=== PATIENT | female | born 1975 | race Caucasian/White ===

== ENCOUNTER 2017-10-13 04:58 | Emergency (ER) | payer SELFPAY ==
[2017-10-13 05:17] VITALS: O2SAT 98
[2017-10-13] MEDS ORDERED: KETOROLAC TROMETHAMINE INJ 60 MG/2 ML VIAL IM ONE (05:26)
[2017-10-13] MEDS ORDERED: LIDOCAINE 1% 10 ML VIAL INJ ONE (05:26)
[2017-10-13] MEDS ORDERED: SULFA/TRIMETH 800/160 (DS) TAB 1 EA TAB PO ONE (05:26)
[2017-10-13] MEDS ORDERED: TETANUS,DIPHTHERIA,PERTUSSIS 1 EA SYG IM ONE (05:26)
[2017-10-13] MEDS ORDERED: PLAIN PACKING STRIP 1/4 1 EA BTTL TOP ONE (05:26)
[2017-10-13] MEDS ORDERED: POVIDONE IODINE 10 % 15 ML UD TOP ONE (05:27)
--- NOTE | 2017-10-13 05:30 | ED.PDOC ---
History of Present Illness - General Chief Complaint: Skin/Abrasion/Tear Stated Complaint: skin abcess Time Seen by Provider: 10/13/17 05:25 Source: patient Exam Limitations: no limitations - History of Present Illness Initial Comments: patient is a 42-year-old to 3 day history of worsening boils on her right eye and right abdominal wall. Patient had no fever or chills but has had some nausea last night. No emesis but the pain is worsening especially on the abdominal abscess. Patient did have one of these before several months ago and has left a scar behind her right thigh after it ruptured. Patient is concerned she may have staph. She denies any other systemic symptoms including fever, chills, cough or cold symptoms. Timing/Duration: other - 2-3 days Severity: moderate Location: face, torso Improving Factors: nothing Worsening Factors: nothing Associated Symptoms: other - nausea Allergies/Adverse Reactions: Allergies NO KNOWN ALLERGY Allergy (Verified 07/17/14 21:10) Home Medications: Ambulatory Orders Acetaminophen W/ Codeine [Tylenol W/ CODEINE #3] 1 ea PO Q6HR PRN 4 Days #20 Sulfa/Trimeth 800/160 (Ds) Tab [Bactrim DS] 1 tablet PO BID #20 tab 10/13/17 Review of Systems - Review of Systems Constitutional: Denies: chills, fever EENTM: Denies: eye pain, throat pain Respiratory: Denies: cough, short of breath, wheezing Cardiology: Denies: chest pain, palpitations, syncope Gastrointestinal/Abdominal: States: nausea. Denies: abdominal pain, vomiting Musculoskeletal: States: no symptoms reported Skin: States: see HPI Neurological: States: no symptoms reported Past Medical History (General) - Patient Medical History Hx Seizures: No Hx Stroke: No Hx Dementia: No Hx Asthma: Yes Hx of COPD: No Hx Cardiac Disorders: No Hx Congestive Heart Failure: No Hx Pacemaker: No Hx Hypertension: Yes Hx Thyroid Disease: Yes Hx Diabetes: No Hx Gastroesophageal Reflux: No Hx Renal Disease: No Hx Cancer: No Hx of HIV: No Hx Hepatitis C: No Hx MRSA: No Surgical History: cholecystectomy, other - 2, D&C - Vaccination History Hx Tetanus, Diphtheria Vaccination: No Hx Influenza Vaccination: No Hx Pneumococcal Vaccination: No - Social History Hx Tobacco Use: No Hx Chewing Tobacco Use: No Hx Alcohol Use: No Hx Substance Use: No Hx Substance Use Treatment: No Hx Depression: No Hx Physical Abuse: No Hx Emotional Abuse: No Hx Suspected Abuse: No - Female History Patient : No Family Medical History - Family History Grandparents Living Status: Hx Family Asthma: Yes Hx Family Hypertension: Yes Hx Family Stroke: Yes Hx Cardiac Disease: Yes Paternal Living Status: Hx Family Asthma: Yes Physical Exam - Physical Exam General Appearance: No apparent distress Eyes, Ears, Nose, Throat Exam: PERRL/EOMI, other - R eye with abscess including the inner lower eyelid. It is open and draining. 1.5 cm of erythema and edema Neck: non-tender, full range of motion, supple Cardiovascular/Chest: normal peripheral pulses, regular rate, rhythm, no edema, no gallop, no JVD, no murmur Respiratory: chest non-tender, lungs clear, normal breath sounds Gastrointestinal/Abdominal: non tender, soft Neurologic: alert, oriented x 3 Skin Exam: other - R upper abdomen with 1 cm central putule and 3 cm of fluctulance no streaking Progress - Progress Progress: 10/13/17 06:01 Laboratory Results WBC 10.9 K/mm3 (4.8-10.8) H 10/13/17 05:26 RBC 4.62 M/mm3 (4.20-5.40) 10/13/17 05:26 Hgb 13.1 gm/dL (12.0-16.0) 10/13/17 05:26 Hct 39.8 % (36.0-47.0) 10/13/17 05:26 MCV 86.2 fl (81.0-99.0) 10/13/17 05:26 MCH 28.4 pg (27.0-31.0) 10/13/17 05:26 MCHC 32.9 g/dL (33.0-37.0) L 10/13/17 05:26 RDW 14.3 % (11.5-14.5) 10/13/17 05:26 Plt Count 290 K/mm3 (130-400) 10/13/17 05:26 MPV 7.5 fl (7.40-10.4) 10/13/17 05:26 Absolute Neuts (auto) 7.20 K/uL (1.8-6.8) H 10/13/17 05:26 Absolute Lymphs (auto) 2.90 K/uL (1.0-3.4) 10/13/17 05:26 Absolute Monos (auto) 0.60 K/uL (0.2-0.8) 10/13/17 05:26 Absolute Eos (auto) 0.10 K/uL (0.0-0.4) 10/13/17 05:26 Absolute Basos (auto) 0.10 K/uL (0.0-0.1) 10/13/17 05:26 Neutrophils % 65.5 % (42.0-78.0) 10/13/17 05:26 Lymphocytes % 27.0 % (20.0-50.0) 10/13/17 05:26 Monocytes % 5.8 % (2.0-9.0) 10/13/17 05:26 Eosinophils % 1.2 % (1.0-5.0) 10/13/17 05:26 Basophils % 0.5 % (0.0-2.0) 10/13/17 05:26 Serum HCG, Qual Negative 10/13/17 05:31 Procedures - Incision and Drainage #2 Procedure and Prep: betadine prep, wound culture collected Blade Size: 11 Procedure Comments: after consent was obtained area was cleaned with Betadine. 3 cc of 1% lidocaine was injected over the skin for local anesthesia. After adequate anesthesia was ensured 11 blade was used to open crossways over the central pustule. Minimal purulence was drained and surrounding induration remained. No packing was placed as pocket was not a well-developed. Area was cleaned and dressed with Neosporin, 4 x 4's and secured with tape. Patient tolerated procedure well Departure - Departure Clinical Impression: Abscess Disposition: Discharge to Home or Self Care Condition: Fair Departure Forms: ED Discharge - Pt. Copy, Patient Portal Self Enrollment Instructions: DI for Abrasion Diet: regular diet Activity: may shower, no tub bath Referrals: Jerardo Gamble MD [Primary Care Provider] - 1-2 Weeks Prescriptions: Acetaminophen W/ Codeine [Tylenol W/ CODEINE #3] 1 ea PO Q6HR PRN 4 Days #20 PRN Reason: Pain Sulfa/Trimeth 800/160 (Ds) Tab [Bactrim DS] 1 tablet PO BID #20 tab Home Medications: Ambulatory Orders Acetaminophen W/ Codeine [Tylenol W/ CODEINE #3] 1 ea PO Q6HR PRN 4 Days #20 Sulfa/Trimeth 800/160 (Ds) Tab [Bactrim DS] 1 tablet PO BID #20 tab 10/13/17 Additional Instructions: Heat externally to the area with mild pressure. no soaking in bathtub Lortab. Return to emergency room for temperature greater than 100.5, increased redness, increased pain, emesis, or worsening edema to the face. Follow up in one day with PCP or ER to recheck wound and will need to follow-up for culture results in 48 hours. Comments: discussed with patient that minimal drainage was able to be obtained and that it would still need to accumulate. She is to apply heat externally to the area with some pressure to try to get to continue to drain. In 24 hours she should take off the dressing clean with warm soapy water and redress his Neosporin and 4 x 4's. She should be seen in 24 hours either in clinic or emergency room if needed. Return to the emergency room for temperature greater than 100.5, increased redness or pain, chills,or emesis.
[2017-10-13] MEDS ORDERED: NEOMYCIN-BACITRACIN-POLYMYXIN 0.9 GM UD TOP ONE (05:54)
[2017-10-13 06:09] VITALS: BP 162/78; TEMP 97
== END 2017-10-13 06:10 | disposition home or self-care (01) ==
LOC: ER 04:58
DX: L02.211 Cutaneous abscess of abdominal wall (principal); H00.032 Abscess of right lower eyelid; Z23 Encounter for immunization

== ENCOUNTER 2018-01-15 14:17 | Emergency (ER) | payer SELFPAY ==
[2018-01-15] MEDS ORDERED: SODIUM CHLORIDE 0.9% 1000ML 1,000 ML IVS ONE (14:42)
[2018-01-15] MEDS ORDERED: ONDANSETRON INJ 4 MG/2 ML VIAL IV ONE (14:43)
--- NOTE | 2018-01-15 14:47 | ED.PDOC ---
History of Present Illness - General Chief Complaint: Cardiovascular Problem Stated Complaint: Palpitations, dizziness, chest pressure Time Seen by Provider: 01/15/18 14:34 Source: patient Exam Limitations: no limitations - History of Present Illness Timing/Duration: 1-3 hours Severity: mild Location: substernal Activities at Onset: other - having bowel movement Prior Chest Pain/Cardiac Workup: no prior chest pain, no prior cardiac workup Improving Factors: rest Worsening Factors: nothing Nitro Today/Relief: no nitro taken today Aspirin Treatment Today: no aspirin today Associated Symptoms: chest pain, diaphoresis, nausea/vomiting, weakness - dizziness Allergies/Adverse Reactions: Allergies Codeine Allergy (Verified 01/15/18 14:21) Vomitting Home Medications: Ambulatory Orders Ondansetron Tab [Zofran Tab] 4 mg PO Q4HR PRN #15 tab 01/15/18 Review of Systems - Review of Systems Constitutional: States: chills, diaphoresis, malaise EENTM: States: no symptoms reported Respiratory: Denies: short of breath Cardiology: States: chest pain. Denies: syncope Gastrointestinal/Abdominal: States: nausea, vomiting. Denies: abdominal pain, constipation Genitourinary: States: no symptoms reported Musculoskeletal: States: no symptoms reported Skin: States: no symptoms reported Neurological: States: weakness Endocrine: States: no symptoms reported. Denies: excessive sweating, intolerance to cold, intolerance to heat Hematologic/Lymphatic: States: no symptoms reported Past Medical History (General) - Patient Medical History Hx Seizures: No Hx Stroke: No Hx Dementia: No Hx Asthma: Yes Hx of COPD: No Hx Cardiac Disorders: No Hx Congestive Heart Failure: No Hx Pacemaker: No Hx Hypertension: Yes Hx Thyroid Disease: Yes Hx Diabetes: No Hx Gastroesophageal Reflux: No Hx Renal Disease: No Hx Cancer: No Hx of HIV: No Hx Hepatitis C: No Hx MRSA: No - Vaccination History Hx Tetanus, Diphtheria Vaccination: No Hx Influenza Vaccination: No Hx Pneumococcal Vaccination: No - Social History Hx Tobacco Use: - Quit Hx Chewing Tobacco Use: No Hx Alcohol Use: No Hx Substance Use: No Hx Substance Use Treatment: No Hx Depression: No Hx Physical Abuse: No Hx Emotional Abuse: No Hx Suspected Abuse: No - Female History Patient : No Family Medical History - Family History Grandparents Living Status: Hx Family Asthma: Yes Hx Family Hypertension: Yes Hx Family Stroke: Yes Hx Cardiac Disease: Yes Paternal Living Status: Hx Family Asthma: Yes Physical Exam - Physical Exam General Appearance: Alert, Anxious Eyes, Ears, Nose, Throat Exam: PERRL/EOMI, pharynx normal Neck: non-tender, full range of motion Respiratory: chest non-tender, normal breath sounds, no respiratory distress Cardiovascular/Chest: normal peripheral pulses, regular rate, rhythm, no edema Peripheral Pulses: radial,right: 2+, radial,left: 2+ Gastrointestinal/Abdominal: normal bowel sounds, non tender Extremity: normal range of motion, non-tender, normal inspection Neurologic: alert, oriented x 3 Skin Exam: normal color, diaphoresis Progress - EKG/XRAY/CT EKG: Sinus, no ST T wave changes - rightward axis deviation Comments: rate 78, SD 166, QRS 106 Departure - Departure Clinical Impression: Palpitation, Nausea GERD (gastroesophageal reflux disease) Qualifiers: Esophagitis presence: without esophagitis Qualified Code(s): K21.9 - Gastro- esophageal reflux disease without esophagitis Disposition: Discharge to Home or Self Care Departure Forms: ED Discharge - Pt. Copy, Patient Portal Self Enrollment Instructions: DI for Chest Pain Referrals: Jerardo Gamble MD [Primary Care Provider] - 1-2 Weeks Prescriptions: Ondansetron Tab [Zofran Tab] 4 mg PO Q4HR PRN #15 tab PRN Reason: Nausea Home Medications: Ambulatory Orders Ondansetron Tab [Zofran Tab] 4 mg PO Q4HR PRN #15 tab 01/15/18
[2018-01-15 16:55] VITALS: BP 151/73; TEMP 98; O2SAT 97
== END 2018-01-15 16:45 | disposition home or self-care (01) ==
LOC: ER 14:17
DX: K21.9 Gastro-esophageal reflux disease without esophagitis (principal); R00.2 Palpitations; R11.0 Nausea; J45.909 Unspecified asthma, uncomplicated; I10 Essential (primary) hypertension; E07.9 Disorder of thyroid, unspecified; R42 Dizziness and giddiness; Z87.891 Personal history of nicotine dependence
CPT/HCPCS: 80053; 84443; 84484; 85025; 93005; J2405; J7030